=== PATIENT | male | born 1965 | race Caucasian/White ===

== ENCOUNTER 2016-08-18 14:33 | Emergency (ER) | payer OTHER, MEDICAID ==
[2016-08-18 15:06] VITALS: TEMP 98.1
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
[2016-08-18 15:59] VITALS: BP 105/69; PULSE 64; RESP 16; O2SAT 99
== END 2016-08-18 15:58 | disposition home or self-care (01) ==
DX: S60.811A Abrasion of right wrist, initial encounter (principal); V73.6XXA Passenger on bus injured in collision with car, pick-up truck or van in traffic accident, initial encounter; Y92.410 Unspecified street and highway as the place of occurrence of the external cause